=== PATIENT | female | born 1955 | race Two or more races ===

== ENCOUNTER 2017-12-07 09:53 | Inpatient (IN) | payer BC, OTHER ==
[~2017-12-07] VITALS: Ht 160 cm; Wt 64.6 kg
[2017-12-07 12:30] VITALS: BP 127/62
--- NOTE | 2017-12-07 12:30 | NUR ---
PATIENT RECEIVED FROM [facility]. MILD SOB ON EXERTION AND COUGH. PATIENT ORIENTED TO ROOM AND CALL LIGHT. VITALS CHECKED AND RECORDED. ALEJANDRA NOTIFIED OF PATIENT ADMISSION. WILL CARRY OUT ORDERS.
[2017-12-07] MEDS ORDERED: ONDANSETRON HCL/PF 4 MG/2 ML VIAL IVP PRN (13:30)
[2017-12-07] MEDS ORDERED: MAG HYDROX/AL HYDROX/SIMETH 30 ML UDC PO PRN (13:30)
[2017-12-07] MEDS ORDERED: MAGNESIUM HYDROXIDE 30 ML UDC PO PRN (13:30)
[2017-12-07] MEDS ORDERED: ACETAMINOPHEN 325 MG TABLET PO PRN (13:30)
[2017-12-07] MEDS: METRONIDAZOLE 500MG/ NS 100ML 500 MG in PREMIX 1 EA IV SCH ×2 (14:22→20:08)
--- NOTE | 2017-12-07 15:05 | NUR ---
CALLED ALEJANDRA TO INFORM HIM THAT THE PATIENT WAS ON ALBUTEROL AND ATROVENT Q4H AT [place]. ALEJANDRA GAVE TELEPHONE ORDER TO CONTINUE THESE MEDICATIONS. ORDER PLACED AND RT CALLED.
[2017-12-07] MEDS: ALBUTEROL FS 2.5 MG/0.5 ML VIAL.NEB NEB SCH ×3 (15:51→23:13)
[2017-12-07] MEDS: IPRATROPIUM NEB FS 0.5 MG/2.5 ML AMPUL.NEB NEB SCH ×3 (15:51→23:13)
[2017-12-07 16:00] VITALS: BP 139/62
--- NOTE | 2017-12-07 16:40 | NUR ---
CALLED PHARMACY AND SPOKE TO KAREEN. TOLD KAREEN THE ROCEPHIN AND XIFAXAN ARE NOT ON THE FLOOR FOR THE PATIENT. KAREEN STATES HE WILL SEND THE MEDICATIONS.
[2017-12-07] MEDS: RIFAXIMIN 550 MG TABLET PO SCH (17:00)
[2017-12-07] MEDS ORDERED: ALBU2.5V13 IH (17:32)
[2017-12-07] MEDS ORDERED: IPRA0.2S9 IH (17:32)
[2017-12-07] MEDS ORDERED: LACT10SO PO (17:32)
[2017-12-07] MEDS ORDERED: ACET325T53 PO (17:32)
[2017-12-07] MEDS ORDERED: CEFT1VIA15 IV (17:32)
[2017-12-07] MEDS ORDERED: ONDA4SYR IV (17:32)
[2017-12-07] MEDS ORDERED: BRIM5DRO LEFTEYE (17:32)
[2017-12-07] MEDS ORDERED: METR500P4 IV (17:32)
[2017-12-07] MEDS ORDERED: AZIT500V11 IV (17:32)
[2017-12-07] MEDS: LACTULOSE 10 G/15 ML UDC (PYXIS) PO SCH (17:44)
[2017-12-07] MEDS: CEFTRIAXONE 1 G in IV D5W 50 ML IV SCH (17:44)
--- NOTE | 2017-12-07 17:44 | NUR ---
PT REFUSING XIFAXAN. STATES NO NOT NOW I DON'T NEED IT. EXPLAINED THE IMPORTANCE TO THE PATIENT BUT STILL REFUSING. WILL INFORM ALEJANDRA.
--- NOTE | 2017-12-07 18:01 | NUR ---
PICC LINE INSERTED PER MD ORDER. CHEST XRAY DONE TO ENSURE PROPER PLACEMENT. WAITING FOR XRAY RESULTS.
--- NOTE | 2017-12-07 19:40 | NUR ---
LADLE OPERATOR OPENING NOTES RECEIVED PATIENT IN BED, AWAKE ALERT AND VERBALLY RESPONSIVE, RESPIRATIONS EVEN AND UNLABORED, ON 4 LITERS 02 VIA NC, NO COMPLAINTS OF PAIN OR DISCOMFORT,AT THIS TIME, IV SITE TO LEFT AC AND RIGHT UPPER ARM PICC LINE, INTACT AND PATENT NO REDNESS , NO INFILTRATION TO SITE, ORIENTED TO STAFF, SAFETY MEASURES IN PLACE, CALL LIGHT KEPT WITHIN REACH WILL CONTINUE TO MONITOR, ON PRODUCTION POTTER SINUS TACHY AT 112, NO DISTRESS PRESENT.
[2017-12-07 20:00] VITALS: BP 135/76
[2017-12-08] VITALS: BP 104/54
[2017-12-08] MEDS: ALBUTEROL FS 2.5 MG/0.5 ML VIAL.NEB NEB SCH ×6 (03:30→23:10)
[2017-12-08] MEDS: IPRATROPIUM NEB FS 0.5 MG/2.5 ML AMPUL.NEB NEB SCH ×6 (03:30→23:10)
--- NOTE | 2017-12-08 03:46 | NUR ---
HHN treatment not given; medications not available. Addendum: 12/08/17 at 0347 by KELSIE LAMAS RT Amended: Links added.
--- NOTE | 2017-12-08 03:56 | NUR ---
HHN treatment not given; medications not available. Addendum: 12/08/17 at 0356 by KELSIE LAMAS RT Amended: Links added.
[2017-12-08 04:00] VITALS: BP 124/72
[2017-12-08] MEDS: METRONIDAZOLE 500MG/ NS 100ML 500 MG in PREMIX 1 EA IV SCH (05:11)
[2017-12-08 06:45] LABS: TROPONIN I 0.084 ng/mL (0.00-0.056)
--- NOTE | 2017-12-08 06:46 | NUR ---
LACER AND TIER CLOSING NOTES PATIENT IN BED, AWAKE ALERT AND VERBALLY RESPONSIVE, ABLE TO FOLLOW DIRECTIONS,AND MAKE SIMPLE NEEDS KNOWN.RESPIRATIONS EVEN AND UNLABORED, ON 4 LITERS 02 VIA NC, NO COMPLAINTS OF PAIN OR DISCOMFORT,AT THIS TIME, IV SITE TO LEFT AC AND RIGHT UPPER ARM PICC LINE, INTACT AND PATENT NO REDNESS , NO INFILTRATION TO SITE, SAFETY MEASURES IN PLACE, CALL LIGHT KEPT WITHIN REACH WILL CONTINUE TO MONITOR, ON DINING MANAGER SINUS TACHY AT 93, NO DISTRESS PRESENT. WILL ENDORSE TO NEXT SHIFT.
[2017-12-08 07:06] LABS: BILIRUBIN,TOTAL 3.9 mg/dL (0.2-1.0); CALCIUM, SERUM 7.2 mg/dL (8.5-10.1); CREATININE 0.9 mg/dL (0.6-1.3); MAGNESIUM 1.5 mg/dL (1.8-2.4); PHOSPHORUS 2.3 mg/dL (2.5-4.9); POTASSIUM 3.7 mmol/L (3.5-5.1); TOTAL PROTEIN, SERUM 6.1 g/dL (6.4-8.2)
[2017-12-08 07:07] LABS: BASOPHILS % (AUTO) 0.1 % (0.0-2.0); HEMATOCRIT 32 % (33-45); HEMOGLOBIN 10.9 g/dL (11.5-14.8); LYMPHOCYTES # (AUTO) 0.6 /CMM (0.8-4.8); LYMPHOCYTES % (AUTO) 13.1 % (20.0-44.0); MEAN CORPUSCULAR HGB CONC 35 g/dl (31.0-36.0); MEAN CORPUSCULAR VOLUME 101 fL (82-100); MONOCYTES # (AUTO) 0.6 /CMM (0.1-1.30); MONOCYTES % (AUTO) 12.2 % (2.0-12.0); NEUTROPHILS # (AUTO) 3.4 /CMM (1.8-8.9); NEUTROPHILS % (AUTO) 72.6 % (43.0-81.0); RDW COEFFICIENT OF VARIATION 18.4 (11.5-15.0); RED BLOOD CELL COUNT(AUTO) 3.11 MIL/uL (4.0-5.2); WHITE BLOOD COUNT (AUTO) 4.7 K/uL (4.3-11.0)
[2017-12-08 07:08] LABS: ALBUMIN 1.1 g/dL (3.4-5.0)
[2017-12-08 07:09] LABS: THYROID STIMULATING HORMONE 2.484 uIU/mL (0.358-3.74)
[2017-12-08 07:10] LABS: PLATELET COUNT (AUTO) 45 /CMM (150-450)
[2017-12-08 08:00] VITALS: BP 125/76
--- NOTE | 2017-12-08 08:00 | NUR ---
Tele/RN - Assessment Patient more awake and alert, denies pain, tele shows ST, on 4lpm via NC, no c/o shortness of breath, not in any form of distress. Reviewed labs noted with low platelet count, no active bleeding seen, magnesium 1.5, Fortunato SENIOR AUTOMATION ENGINEER made aware. SALLIE PICC line in place both ports flushing well. LAC saline lock is patent, intact, with no signs of infiltration. Skin assessment done. Patient independent with bed mobility. All needs anticipated and met. Fall and aspiration precautions maintained. Will continue with current medical management.
[2017-12-08] MEDS: LACTULOSE 10 G/15 ML UDC (PYXIS) PO SCH ×3 (08:25→17:00)
[2017-12-08] MEDS: RIFAXIMIN 550 MG TABLET PO SCH ×2 (08:25→16:32)
[2017-12-08] MEDS: PANTOPRAZOLE 40 MG TABLET.DR PO SCH (08:25)
[2017-12-08 09:25] LABS: EOSINOPHILS % (MANUAL) 2 % (0-4); LYMPHOCYTES % (MANUAL) 5 % (16-48); MONOCYTES % (MANUAL) 6 % (0-11.0); NEUTROPHILS % (MANUAL) 87 (42-76)
[2017-12-08] MEDS: AZITHROMYCIN 500 MG in IV D5W 250 ML IV SCH (09:55)
[2017-12-08] MEDS ORDERED: ENTE1TAB2 PO (10:23)
[2017-12-08] MEDS ORDERED: Magnesium 1GM/D5W 100ML PREMIX 100 ML IV ONE (10:30)
[2017-12-08] MEDS ORDERED: BUMETANIDE INJ 4 MG in IV D5W 24 ML IV ONE (14:00)
[2017-12-08 15:09] LABS: ABG BASE EXCESS -3.1 mmol/L; ABG OXYGEN SATURATION 90.4 % (92.0-98.5); ABG PCO2 27.6 mmHg (35.0-45.0); ABG PH 7.467 (7.350-7.450); AaDO2 192.5 mmHg; COHb 1.2 % (0.5-1.5); MetHb 0.4 % (0.0-1.5); SITE, ABG Right Radial; VENT MODE, BG 5L NC
[2017-12-08 16:00] VITALS: BP 111/65
[2017-12-08] MEDS ORDERED: NEUTRA PHOS 1 POWD.PACKET PO ONE (16:30)
[2017-12-08] MEDS: CEFTRIAXONE 1 G in IV D5W 50 ML IV SCH (17:00)
--- NOTE | 2017-12-08 18:00 | NUR ---
M/S RN - Notes Patient remain awake and alert, not in any form of distress, currently on 6lpm via simple mask, denies pain, frequent re-orientation done. Patient currently on Bumex drip at 10 ml/hr x 4 hours, end time 19:30. Magnesium and phosphorous replaced. All needs attended and met. Fall and aspiration precautions maintained. Will continue with current medical management.
--- NOTE | 2017-12-08 19:40 | NUR ---
RN MS OPENING NOTES RECEIVED PATIENT IN BED, AWAKE ALERT AND VERBALLY RESPONSIVE, RESPIRATIONS EVEN AND UNLABORED, ON O2 6 LITERS VIA SIMPLE MASK, NO COMPLAINTS OF PAIN OR DISCOMFORT AT THIS TIME, IV SITE TO LEFT AC AND RIGHT UPPER ARM PICC LINE, INTACT AND PATENT NO REDNESS , NO INFILTRATION TO SITE, BUMEX RUNNING ORDERED WILL CONTINUE TO MONITOR ORIENTED TO STAFF AND CALL LIGHT, ASSISTED TO BED SIDE COMMODE VOIDED X1 YELLOW CLEAR, FLUIDS OFFERED TOLERATED, SAFETY MEASURES IN PLACE, CALL LIGHT KEPT WITHIN REACH. WILL CONTINUE TO MONITOR
[2017-12-08 20:00] VITALS: BP_SYST 109; BP_SYST 126; BP_DIAS 53; BP_DIAS 65
[2017-12-08 20:27] LABS: INR 1.7 (0.87-1.13)
[2017-12-08 20:33] LABS: BILIRUBIN,DIRECT 2.1 mg/dL (0.0-0.2); BILIRUBIN,TOTAL 3.5 mg/dL (0.2-1.0)
--- NOTE | 2017-12-09 02:50 | NUR ---
RN MS NOTES PATIENT REMOVED RIGHT UPPER ARM PICC LINE, NOTED PICC LINE FULLY INTACT , NO BLEEDING TO SITE, MADE PATIENT AWARE OF IMPORTANCE OF PICC LINE STATED" I DONT NEED IT ANYMORE". LEFT AC IV SITE INTACT, REMINDED PATIENT NOT TO TOUCH PULL OUT CURRENT LINE, VERBALIZES SHE UNDERSTANDS, WILL CONTINUE TO MONITOR.
[2017-12-09] MEDS: IPRATROPIUM NEB FS 0.5 MG/2.5 ML AMPUL.NEB NEB SCH ×3 (03:37→11:32)
[2017-12-09] MEDS: ALBUTEROL FS 2.5 MG/0.5 ML VIAL.NEB NEB SCH ×3 (03:37→11:32)
--- NOTE | 2017-12-09 06:35 | NUR ---
RN MS CLOSING NOTES PATIENT IN BED, AWAKE ALERT AND VERBALLY RESPONSIVE, RESPIRATIONS EVEN AND UNLABORED, ON O2 6 LITERS VIA SIMPLE MASK, NO COMPLAINTS OF PAIN OR DISCOMFORT AT THIS TIME, IV SITE TO LEFT AC INTACT AND PATENT AND RIGHT UPPER ARM PICC LINE WAS REMOVED BY PATIENT,BAND AID INTACT DRY NO BLEEDING NO COMPLAIN OF PAIN TO SITE ORDERED WILL CONTINUE TO MONITOR SAFETY MEASURES IN PLACE, ASSISTED TO BED SIDE COMMODE VOIDED YELLOW CLEAR AND HAD BOWEL MOVEMENT, FLUIDS OFFERED TOLERATED, CALL LIGHT KEPT WITHIN REACH. WILL CONTINUE TO MONITOR AND ENDORSE TO NEXT SHIFT.
--- NOTE | 2017-12-09 07:32 | NUR ---
MS/RN OPENING NOTE PATIENT IN BED AWAKE. ALERT AND ORIENTED X3. DENIES SOB. DENIES PAIN. RESPIRATION REGULAR AND UNLABORED. LAC G 20 PATENT. BED LOW AND LOCKED. SIDE RAILS UP X2. BED ALARM ON. WILL CONTINUE TO MONITOR.
[2017-12-09 08:00] VITALS: BP 100/55
[2017-12-09 08:00] LABS: BASOPHILS % (AUTO) 0.9 % (0.0-2.0); HEMATOCRIT 32 % (33-45); HEMOGLOBIN 10.9 g/dL (11.5-14.8); LYMPHOCYTES # (AUTO) 0.5 /CMM (0.8-4.8); LYMPHOCYTES % (AUTO) 11.8 % (20.0-44.0); MEAN CORPUSCULAR HGB CONC 34 g/dl (31.0-36.0); MEAN CORPUSCULAR VOLUME 101 fL (82-100); MONOCYTES # (AUTO) 0.7 /CMM (0.1-1.30); MONOCYTES % (AUTO) 16.1 % (2.0-12.0); NEUTROPHILS # (AUTO) 2.8 /CMM (1.8-8.9); NEUTROPHILS % (AUTO) 69.2 % (43.0-81.0); PLATELET COUNT (AUTO) 56 /CMM (150-450); RDW COEFFICIENT OF VARIATION 18.5 (11.5-15.0); RED BLOOD CELL COUNT(AUTO) 3.12 MIL/uL (4.0-5.2); WHITE BLOOD COUNT (AUTO) 4.1 K/uL (4.3-11.0)
[2017-12-09 08:01] LABS: CREATININE 1.1 mg/dL (0.6-1.3); POTASSIUM 2.9 mmol/L (3.5-5.1)
[2017-12-09 08:06] LABS: BILIRUBIN,DIRECT 2.1 mg/dL (0.0-0.2); BILIRUBIN,TOTAL 3.4 mg/dL (0.2-1.0); TOTAL PROTEIN, SERUM 6.2 g/dL (6.4-8.2)
[2017-12-09 08:09] LABS: ALBUMIN 1.1 g/dL (3.4-5.0)
--- NOTE | 2017-12-09 08:15 | NUR ---
MS/RN NOTE CLASS C DRIVER ALEJANDRA IS MADE AWARE OF ALBUMIN LEVEL 1.1 AND PER CLASS C DRIVER NO NEW ORDER.
[2017-12-09] MEDS: LACTULOSE 10 G/15 ML UDC (PYXIS) PO SCH ×2 (08:49→12:31)
[2017-12-09] MEDS: PANTOPRAZOLE 40 MG TABLET.DR PO SCH (08:49)
[2017-12-09] MEDS: RIFAXIMIN 550 MG TABLET PO SCH (08:49)
[2017-12-09] MEDS: POTASSIUM CHLORIDE 20 MEQ TAB.PRT.SR PO SCH ×5 (08:54→13:00)
--- NOTE | 2017-12-09 09:08 | NUR ---
WOUND CARE CONSULT; PT PRESENTS WITH SOME EDEMA TO EXTREMITIES AND BRUISING TO LEFT HIP AND BUTTOCKS, PRESENT ON ADMISSION. PT STATES THAT SHE FELL AT HOME. ALL SKIN PROTECTION MEASURES IN PLACE AND DISCUSSED WITH NURSING STAFF. CURRENT CARSON SCORE IS 16. WILL SEE PRN. Galen Galindo IN AGREEMENT WITH PLAN OF CARE. Addendum: 12/09/17 at 0909 by TO ZARATE WNDNU Amended: Links added.
[2017-12-09 09:25] LABS: EOSINOPHILS % (MANUAL) 1 % (0-4); LYMPHOCYTES % (MANUAL) 8 % (16-48); MONOCYTES % (MANUAL) 12 % (0-11.0); NEUTROPHILS % (MANUAL) 79 (42-76)
[2017-12-09] MEDS ORDERED: Z GUARD REMEDY 2 OZ OINT TP PRN (09:30)
[2017-12-09] MEDS: AZITHROMYCIN 500 MG in IV D5W 250 ML IV SCH (10:22)
[2017-12-09 13:49] VITALS: BP 125/69
--- NOTE | 2017-12-09 14:10 | NUR ---
MS/RN CLOSING NOTE (PATIENT AMA) PATIENT REQUESTED TO GET DISCHARGED HOME. ANU ROBERTS WAS MADE AWARE OF THE PATIENT`S REQUEST. PATIENT WAS SEEN AND EXAMINED BY ANU ROBERTS AND EXPLAINED THAT DISCHARGE IS NOT ADVISED TODAY. PATIENT ALERT AND ORIENTED X4.. BY THE BEDSIDE. THE PATIENT INSISTED AND STATED SHE LEAVING THE HOSPITAL NO MATTER WHAT. THE PATIENT WITH NO COMPLAIN FROM CARE RECEIVED BUT INSISTING TO GO HOME AGAINST MEDICAL ADVISE. PATIENT WAS EXPLAINED RISKS OF GOING AMA AND BENEFITS OF FOLOWING THE ADVISE TO REMAIN IN THE HOSPITAL. THE PATIENT STILL INSISTED TO GO AGAINST MEDICAL ADVISE. PATIENT SIGNED AMA PAPERS/DISHCRAGE PAPERS. EDUCATION WAS PROVIDED AND PRESCRIPTION FOR HANDED TO THE PATIENT WITH THE REST OF THE PAPERWORK. THE AGREED TO PATIENT`S DECISION TO GO AMA. PATIENT ALERT AND ORIENTED X4. RESPIRATION REGULAR AND UNLABORED. DENIED SOB. DENIED PAIN. PATIENT LEFT THE HOSPITAL IN STABLE CONDITION AND WITH THE LEVI. DISCHARGE TIME TEMP WAS 99.6. PATIENT REFUSED TYLENOL DESPITE EXPLAINING RISKS AND BENEFITS. ANU ROBERTS MADE AWARE. PATIENT INSISTED AMA AND SIGNS AMA BEING ALERT AND ORIENTED X4.
== END 2017-12-09 14:47 | disposition left against medical advice (07) | DRG 871 ==
LOC: TELE 12:36 → MED 12-08 09:04
PROVIDERS: ADMIT Nurse Practitioner Acute Care; ATTEND Nurse Practitioner Acute Care
PROC: B548ZZA Ultrasonography of Superior Vena Cava, Guidance (ICD-10-PCS; principal; 2017-12-07)
PROC: 02HV33Z Insertion of Infusion Device into Superior Vena Cava, Percutaneous Approach (ICD-10-PCS; principal; 2017-12-07)
DX: A41.9 Sepsis, unspecified organism (principal); J15.6 Pneumonia due to other Gram-negative bacteria; K72.00 Acute and subacute hepatic failure without coma; I21.A1 Myocardial infarction type 2; E43 Unspecified severe protein-calorie malnutrition; D61.818 Other pancytopenia; G92 Toxic encephalopathy; J81.1 Chronic pulmonary edema; J15.9 Unspecified bacterial pneumonia; J90 Pleural effusion, not elsewhere classified; C85.90 Non-Hodgkin lymphoma, unspecified, unspecified site; N39.0 Urinary tract infection, site not specified; E87.2 Acidosis; B19.10 Unspecified viral hepatitis B without hepatic coma; B96.20 Unspecified Escherichia coli [E. coli] as the cause of diseases classified elsewhere; D69.59 Other secondary thrombocytopenia; E80.6 Other disorders of bilirubin metabolism; E83.42 Hypomagnesemia; K74.69 Other cirrhosis of liver; I27.20 Pulmonary hypertension, unspecified; D53.9 Nutritional anemia, unspecified; Z68.25 Body mass index [BMI] 25.0-25.9, adult; R74.0 Nonspecific elevation of levels of transaminase and lactic acid dehydrogenase [LDH]; D72.819 Decreased white blood cell count, unspecified
CPT/HCPCS: 36415; 36569; 36600; 71045-TC; 80048-TC; 80053-TC; 80061-TC; 80076-TC; 82140-TC; 82247-TC; 82248-TC; 82728-TC; 82746; 82803-TC; 83540-TC; 83615-TC; 83735-TC; 84100-TC; 84443-TC; 84484-TC; 85025-TC; 85610-TC; 85730-TC; 87040-TC; 87081-TC; 92611-TC; 93307-TC; 94799-TC; A4216; C1751; J0456; J0696; J3475; J3490; J7050; J7060; Z7610